=== PATIENT | female | born 1935 | race African-American/Black ===

== ENCOUNTER 2019-04-02 21:11 | Emergency (ER) | payer OTHER ==
[~2019-04-02] VITALS: Ht 160 cm; Wt 69.4 kg
[2019-04-02 21:35] LABS: BASO # 0.2 x10^3/uL (0.0-0.2); BASO % 1 % (0-3); EOS # 0.1 x10^3/uL (0.0-0.7); EOS % 1 % (0-3); HEMATOCRIT 47.2 % (36.0-47.0); HEMOGLOBIN 15.3 g/dL (12.0-15.5); LYMPH % 33 % (24-48); MEAN CORPUSCULAR HEMOGLOBIN 28 pg (25-35); MEAN CORPUSCULAR HGB CONC 32 g/dL (31-37); MEAN CORPUSCULAR VOLUME 88 fL (79-100); MONO # 0.8 x10^3/uL (0.0-1.1); MONO % 6 % (0-9); NEUT % 60 % (31-73); PLATELET COUNT 304 x10^3/uL (140-400); RED BLOOD COUNT 5.38 x10^6/uL (3.50-5.40); RED CELL DISTRIBUTION WIDTH 14.4 % (11.5-14.5); WHITE BLOOD COUNT 15.1 x10^3/uL (4.0-11.0)
[2019-04-02] MEDS: fentaNYL PF VIAL 100 MCG/2 ML VIAL IV PRN (21:38)
[2019-04-02] MEDS ORDERED: IV NORMAL SALINE 1000ML BAG 1,000 ML IV SCH (22:00)
[2019-04-02] MEDS ORDERED: ONDANSETRON PF 4 MG/2 ML VIAL. IV ONE (22:00)
[2019-04-02 22:30] LABS: CALCIUM 9.2 mg/dL (8.5-10.1); CREATININE 0.9 mg/dL (0.6-1.0); GFR 72.7; POTASSIUM 3.2 mmol/L (3.5-5.1)
[2019-04-02 22:36] LABS: ALBUMIN 3.7 g/dL (3.4-5.0); TOTAL BILIRUBIN 0.7 mg/dL (0.2-1.0); TOTAL PROTEIN 7.5 g/dL (6.4-8.2)
[2019-04-02 22:41] LABS: BILIRUBIN,URINE SMALL (NEG); CLARITY,URINE CLOUDY; COLOR,URINE YELLOW; NITRITE,URINE NEGATIVE (NEG); PH,URINE 6.5; PROTEIN,URINE 100 mg/dL (NEG-TRACE)
[2019-04-02 22:45] LABS: SQUAMOUS EPITHELIAL CELL,UR FEW /LPF
[2019-04-02 22:46] LABS: AMORPHOUS SEDIMENT,UR PRESENT /HPF; BACTERIA,URINE 0 /HPF (0-FEW); RBC,URINE RARE /HPF (0-2)
[2019-04-02] MEDS ORDERED: CONTRAST GIVEN. MC PRN (23:45)
[2019-04-02] MEDS ORDERED: IOHEXOL 300 MG/ML 100ML VIAL. IV ONE (23:45)
--- NOTE | 2019-04-02 23:59 | RAD ---
CT ABD PELV W/ IV CONTRST ONLY History: Abdominal pain Comparison: None. Technique: After administration of intravenous contrast, helical CT of the abdomen and pelvis was performed from the lung bases through the ischial tuberosities. Coronal and sagittal reconstructions were obtained. 75 mL of Omnipaque 350 were used. One or more of the following dose reduction techniques were utilized: Automated exposure control (AEC), Adjustment of mA and/or kV according to patient size, Use of iterative reconstruction technique such as ASiR, CT scan done according to ALARA and image gently/image wisely Abdomen Findings: Cardiomegaly. Bibasilar dependent and subsegmental atelectasis. Mildly enlarged mediastinal and hilar lymph nodes. The liver, pancreas, spleen, and bilateral adrenal glands are normal. Cholecystectomy. Symmetric renal enhancement. Subcentimeter right renal hypodensity, too small to characterize but likely a cyst. There is no hydronephrosis. Small hiatal hernia. Multiple prominent fluid-filled but nondilated loops of small bowel. Fluid throughout the proximal colon. Appendix is normal. There is no free fluid. There is no mesenteric or retroperitoneal adenopathy. Mild aortoiliac atherosclerotic disease Pelvis Findings: Urinary bladder is normal. Hysterectomy. No pelvic free fluid. There is no pelvic or inguinal adenopathy. Degenerative changes spine. Grade 1 anterolisthesis at L4-5 and L5-S1. IMPRESSION: 1. Multiple conspicuous fluid-filled but nondilated loops of small bowel, likely nonspecific enteritis. 2. Fluid throughout the proximal colon, which can be seen with diarrhea. 3. Mildly enlarged mediastinal and hilar lymph nodes of indeterminate etiology. Electronically signed by: Steve Golden MD (04/02/2019 11:56 PM) [facility]
[2019-04-03] VITALS: BP 188/103
[2019-04-03] MEDS ORDERED: ONDA4TAB12 PO (00:17)
[2019-04-03] MEDS ORDERED: METR500T PO (00:17)
[2019-04-03] MEDS ORDERED: DIPH1TAB PO (00:17)
--- NOTE | 2019-04-03 00:17 | PHYS DOC ---
Past Medical History Past Medical History: Arthritis, Hypertension, Other Additional Past Medical Histor: osteoporosis Past Surgical History: No Surgical History Alcohol Use: None Drug Use: None Adult General Chief Complaint Chief Complaint: ABDOMINAL PAIN HPI HPI Patient is an 83-year-old female who presents with complaint of abdominal cramping with vomiting and diarrhea that started approximately 3 hours prior to arrival to the emergency room. Patient rates the cramping is moderate. She luis es any chest pain or shortness of breath. She also denies any fever. She states that she has had several episodes of both vomiting and diarrhea since onset. She states that symptoms are worsened if she tries to eat or drink anything. She states that nothing is helping with her symptoms.[] Review of Systems Review of Systems Constitutional: Denies fever or chills [] Respiratory: Denies cough or shortness of breath [] Cardiovascular: No additional information not addressed in HPI [] GI: Complains of abdominal cramping with vomiting and diarrhea [] Integument: Denies rash or skin lesions [] Neurologic: Denies headache, focal weakness or sensory changes [] All other systems were reviewed and found to be within normal limits, except as documented in this note. Current Medications Current Medications Current Medications Medications (Trade) Dose Ordered Sig/Uzair Start Time Stop Time Status Last Admin Dose Admin Fentanyl Citrate (Fentanyl 2ml Vial) 50 mcg PRN Q15MIN PRN 04/02/19 21:30 04/03/19 21:29 04/02/19 21:38 50 MCG Info (CONTRAST GIVEN -- Rx MONITORING) 1 each PRN DAILY PRN 04/02/19 23:45 04/04/19 23:44 Iohexol (Omnipaque 300 Mg/ml) 75 ml 1X ONCE 04/02/19 23:45 04/02/19 23:46 DC 04/02/19 23:40 75 ML Ondansetron HCl (Zofran) 4 mg 1X ONCE 04/02/19 22:00 04/02/19 22:01 DC 04/02/19 21:38 4 MG Sodium Chloride 1,000 ml @ 1,000 mls/hr Q1H 04/02/19 22:00 04/02/19 22:59 DC 04/02/19 21:45 1,000 MLS/HR Allergies Allergies Allergies Coded Allergies Type Severity Reaction Last Updated Verified No Known Drug Allergies 04/02/19 No Physical Exam Physical Exam Constitutional: Well developed, well nourished, no acute distress, non-toxic appearance. [] HENT: Normocephalic, atraumatic, bilateral external ears normal, oropharynx moist, no oral exudates, nose normal. [] Eyes: PERRLA, EOMI, conjunctiva normal, no discharge. [] Neck: Normal range of motion, no tenderness, supple, no stridor. [] Cardiovascular: Regular rate and rhythm[] Lungs & Thorax: Bilateral breath sounds clear to auscultation [] Abdomen: Bowel sounds normal, soft, with mild diffuse tenderness. [] Skin: Warm, dry, no erythema, no rash. [] Extremities: No tenderness, no cyanosis, no clubbing, ROM intact, no edema. [] Neurologic: Alert and oriented X 3, no focal deficits noted. [] Current Patient Data Vital Signs Vital Signs Date Time Temp Pulse Resp B/P (MAP) Pulse Ox O2 Delivery O2 Flow Rate FiO2 04/02/19 21:38 20 Room Air 04/02/19 21:25 98.0 80 194/93 (126) 97 98.0 Lab Values Laboratory Tests Test 04/02/19 21:23 04/02/19 22:06 04/02/19 22:35 White Blood Count 15.1 x10^3/uL (4.0-11.0) H Red Blood Count 5.38 x10^6/uL (3.50-5.40) Hemoglobin 15.3 g/dL (12.0-15.5) Hematocrit 47.2 % (36.0-47.0) H Mean Corpuscular Volume 88 fL (79-100) Mean Corpuscular Hemoglobin 28 pg (25-35) Mean Corpuscular Hemoglobin Concent 32 g/dL (31-37) Red Cell Distribution Width 14.4 % (11.5-14.5) Platelet Count 304 x10^3/uL (140-400) Neutrophils (%) (Auto) 60 % (31-73) Lymphocytes (%) (Auto) 33 % (24-48) Monocytes (%) (Auto) 6 % (0-9) Eosinophils (%) (Auto) 1 % (0-3) Basophils (%) (Auto) 1 % (0-3) Neutrophils # (Auto) 9.0 x10^3/uL (1.8-7.7) H Lymphocytes # (Auto) 5.0 x10^3/uL (1.0-4.8) H Monocytes # (Auto) 0.8 x10^3/uL (0.0-1.1) Eosinophils # (Auto) 0.1 x10^3/uL (0.0-0.7) Basophils # (Auto) 0.2 x10^3/uL (0.0-0.2) Sodium Level 143 mmol/L (136-145) Potassium Level 3.2 mmol/L (3.5-5.1) L Chloride Level 106 mmol/L (98-107) Carbon Dioxide Level 25 mmol/L (21-32) Anion Gap 12 (6-14) Blood Urea Nitrogen 20 mg/dL (7-20) Creatinine 0.9 mg/dL (0.6-1.0) Estimated GFR (Cockcroft-Gault) 72.7 BUN/Creatinine Ratio 22 (6-20) H Glucose Level 171 mg/dL (70-99) H Calcium Level 9.2 mg/dL (8.5-10.1) Total Bilirubin 0.7 mg/dL (0.2-1.0) Aspartate Amino Transferase (AST) 20 U/L (15-37) Alanine Aminotransferase (ALT) 17 U/L (14-59) Alkaline Phosphatase 43 U/L (46-116) L Total Protein 7.5 g/dL (6.4-8.2) Albumin 3.7 g/dL (3.4-5.0) Albumin/Globulin Ratio 1.0 (1.0-1.7) Lipase 93 U/L (73-393) Urine Collection Type Unknown Urine Color Yellow Urine Clarity Cloudy Urine pH 6.5 Urine Specific Outlook 1.025 Urine Protein 100 mg/dL (NEG-TRACE) Urine Glucose (UA) Negative mg/dL (NEG) Urine Ketones (Stick) 40 mg/dL (NEG) Urine Blood Negative (NEG) Urine Nitrite Negative (NEG) Urine Bilirubin Small (NEG) Urine Urobilinogen Dipstick 1.0 mg/dL (0.2 mg/dL) Urine Leukocyte Esterase Small (NEG) Urine RBC Rare /HPF (0-2) Urine WBC 5-10 /HPF (0-4) Urine Squamous Epithelial Cells Few /LPF Urine Calcium Phosphate Crystals /HPF Urine Amorphous Sediment Present /HPF Urine Bacteria 0 /HPF (0-FEW) Urine Mucus Mod /LPF Laboratory Tests 04/02/19 21:23 Laboratory Tests 04/02/19 22:06 EKG EKG [] Radiology/Procedures Radiology/Procedures [] Impressions: PROCEDURE: CT ABD PELV W/ IV CONTRST ONLY CT ABD PELV W/ IV CONTRST ONLY History: Abdominal pain Comparison: None. Technique: After administration of intravenous contrast, helical CT of the abdomen and pelvis was performed from the lung bases through the ischial tuberosities. Coronal and sagittal reconstructions were obtained. 75 mL of Omnipaque 350 were used. One or more of the following dose reduction techniques were utilized: Automated exposure control (AEC), Adjustment of mA and/or kV according to patient size, Use of iterative reconstruction technique such as ASiR, CT scan done according to ALARA and image gently/image wisely Abdomen Findings: Cardiomegaly. Bibasilar dependent and subsegmental atelectasis. Mildly enlarged mediastinal and hilar lymph nodes. The liver, pancreas, spleen, and bilateral adrenal glands are normal. Cholecystectomy. Symmetric renal enhancement. Subcentimeter right renal hypodensity, too small to characterize but likely a cyst. There is no hydronephrosis. Small hiatal hernia. Multiple prominent fluid-filled but nondilated loops of small bowel. Fluid throughout the proximal colon. Appendix is normal. There is no free fluid. There is no mesenteric or retroperitoneal adenopathy. Mild aortoiliac atherosclerotic disease Pelvis Findings: Urinary bladder is normal. Hysterectomy. No pelvic free fluid. There is no pelvic or inguinal adenopathy. Degenerative changes spine. Grade 1 anterolisthesis at L4-5 and L5-S1. IMPRESSION: 1. Multiple conspicuous fluid-filled but nondilated loops of small bowel, likely nonspecific enteritis. 2. Fluid throughout the proximal colon, which can be seen with diarrhea. 3. Mildly enlarged mediastinal and hilar lymph nodes of indeterminate etiology. Electronically signed by: Steve Golden MD (04/02/2019 11:56 PM) [facility] Course & Med Decision Making Course & Med Decision Making Pertinent Labs and Imaging studies reviewed. (See chart for details) [] Dragon Disclaimer Dragon Disclaimer This electronic medical record was generated, in whole or in part, using a voice recognition dictation system. Departure Departure Impression: Primary Impression: Enteritis Disposition: 01 HOME, SELF-CARE Condition: STABLE Referrals: NIURKA CROSS MD (PCP) Patient Instructions: Viral Gastroenteritis Scripts Diphenoxylate Hcl/Atropine (LOMOTIL TABLET) 1 Each Tablet 1 TAB PO TID PRN for DIARRHEA, #15 TAB Prov: NIKKIE ROSAS Jr. DO 04/03/19 Ondansetron (ONDANSETRON ODT) 4 Mg Tab.rapdis 1 TAB PO PRN Q6-8HRS PRN for NAUSEA, #15 TAB Prov: NIKKIE ROSAS Jr. DO 04/03/19 Metronidazole (FLAGYL) 500 Mg Tablet 1 TAB PO TID, #30 TAB Prov: NIKKIE ROSAS Jr. DO 04/03/19 NIKKIE ROSAS Jr. DO Apr 03, 2019 00:17
[2019-04-03] MEDS ORDERED: metroNIDAZOLE 500 MG TABLET PO ONE (00:30)
[2019-04-03] MEDS: fentaNYL PF VIAL 100 MCG/2 ML VIAL IV PRN (00:49)
[2019-04-03] MEDS ORDERED: DIPHENOXYLATE/ATROPINE TABLET. PO ONE (01:00)
--- NOTE | 2019-04-03 06:54 | EKG ---
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
== END 2019-04-03 01:10 | disposition home or self-care (01) ==
LOC: ER 21:11
DX: K52.9 Noninfective gastroenteritis and colitis, unspecified (principal); I10 Essential (primary) hypertension
CPT/HCPCS: 36415; 74177; 80053; 81001; 83690; 85025; 87086; 93005; 96361; 96374; 96375; 96376; 99285; J2405; J3010; J7030; Q9967

== ENCOUNTER 2020-08-21 08:44 | Emergency (ER) | payer MEDICARE, OTHER ==
[~2020-08-21] VITALS: Ht 157.5 cm; Wt 67.3 kg
[~2020-08-21 08:44] MED LIST: DIPH1TAB PO; METR500T PO; ONDA4TAB12 PO
--- NOTE | 2020-08-21 09:11 | PHYS DOC ---
Past Medical History Past Medical History: Arthritis, Hypertension, Other Additional Past Medical Histor: osteoporosis, DM? Past Surgical History: Cholecystectomy Smoking Status: Never Smoker Alcohol Use: None Drug Use: None General Adult EDM: Chief Complaint: HIP PAIN HPI: HPI: Patient is a 84 year old female who presented to ER for evaluation of bilateral hip pain that radiated to her thigh area for about 4 days. Patient has been able to walk without a problem however she is still having pain whenever she moves her extremity. Patient denies any abdominal pain, no nausea vomiting. Patient said about 3 weeks ago she fell after she tripped on her feet. Patient fell forward. Patient denies any head or neck injury. Patient denies any chest pain, no trouble breathing, no cough, no fever. Review of Systems: Review of Systems: Constitutional: Denies fever or chills. [] Eyes: Denies change in visual acuity. [] HENT: Denies nasal congestion or sore throat. [] Respiratory: Denies cough or shortness of breath. [] Cardiovascular: Denies chest pain or edema. [] GI: Denies abdominal pain, nausea, vomiting, bloody stools or diarrhea. [] : Denies dysuria. [] Musculoskeletal: Positive for bilateral hip pain. Integument: Denies rash. [] Neurologic: Denies headache, focal weakness or sensory changes. [] Endocrine: Denies polyuria or polydipsia. [] Lymphatic: Denies swollen glands. [] Psychiatric: Denies depression or anxiety. [] Heart Score: C/O Chest Pain: N/A Risk Factors: Risk Factors: DM, Current or recent (<one month) smoker, HTN, HLP, family h istory of CAD, obesity. Risk Scores: Score 0 - 3: 2.5% MACE over next 6 weeks - Discharge Home Score 4 - 6: 20.3% MACE over next 6 weeks - Admit for Clinical Observation Score 7 - 10: 72.7% MACE over next 6 weeks - Early Invasive Strategies Allergies: Allergies: Allergies Coded Allergies Type Severity Reaction Last Updated Verified No Known Drug Allergies 04/02/19 No Physical Exam: PE: Constitutional: Well developed, well nourished, no acute distress, non-toxic appearance. [] HENT: Normocephalic, atraumatic, bilateral external ears normal, oropharynx moist, no oral exudates, nose normal. [] Eyes: PERRLA, EOMI, conjunctiva normal, no discharge. [] Neck: Normal range of motion, no tenderness, supple, no stridor. [] Cardiovascular:Heart rate regular rhythm, no murmur [] Lungs & Thorax: Bilateral breath sounds clear to auscultation [] Abdomen: Bowel sounds normal, soft, no tenderness, no masses, no pulsatile masses. [] Skin: Warm, dry, no erythema, no rash. [] Back: No tenderness, no CVA tenderness. [] Extremities: No tenderness, no cyanosis, no clubbing, ROM intact, no edema. [] Neurologic: Alert and oriented X 3, normal motor function, normal sensory fun ction, no focal deficits noted. [] Psychologic: Affect normal, judgement normal, mood normal. [] EKG: EKG: [] Radiology/Procedures: Radiology/Procedures: [][facility] [address] [place] [address] IMAGING REPORT Signed PATIENT: ELIGIO CHAVEZ ACCOUNT: [id number] : 1935 LOCATION: ER AGE: 84 SEX: F EXAM STATUS: PRE ER ORD. PHYSICIAN: FARA MEYERS DO REASON: bilat hip pain for 4 days. nki PROCEDURE: HIP BILATERAL WITH PELVIS Pelvis and bilateral hips: Reason for examination: Bilateral hip pain for 4 days. No known injury. Single view of the pelvis shows no evidence of fracture. The bone density is normal. No abnormality seen at the sacrum or sacroiliac joints. Proximal femur appear to be intact. The proximal femur bilaterally appear to be intact and the hip joints are ma intained. IMPRESSION: No acute bony abnormality in the pelvis or proximal femur. Electronically signed by: Aziza Hartley MD (08/21/2020 9:34 AM) [facility] DICTATED and SIGNED BY: AZIZA HARTLEY MD DATE: 08/21/20 [id number] 0 [facility] [address] [place], [place] [id number] IMAGING REPORT Signed PATIENT: ELIGIO CHAVEZ ACCOUNT: [id number] : 1935 LOCATION: ER AGE: 84 SEX: F EXAM STATUS: REG ER ORD. PHYSICIAN: FARA MEYERS DO REASON: legs pain, mostly behind knees and back of thighs PROCEDURE: VENOUS LOWER EXT BILATERAL EXAM: Bilateral lower extremity venous Doppler sonogram. HISTORY: Pain and swelling. TECHNIQUE: Evangelista scale and color Doppler sonographic evaluation of the bilateral lower extremity veins with spectral waveform analysis was performed. FINDINGS: There is normal color flow, normal compressibility and there are normal spectral waveforms in the common femoral, superficial femoral, popliteal, posterior tibial and greater saphenous veins. IMPRESSION: No Doppler evidence of lower extremity deep venous thrombosis. Electronically signed by: Miriam Fox MD (08/21/2020 12:03 PM) [facility] DICTATED and SIGNED BY: MIRIAM FOX MD DATE: 08/21/20 [id number] 0 Course & Med Decision Making: Course & Med Decision Making Pertinent Labs and Imaging studies reviewed. (See chart for details) Patient is an 84-year-old female who presented to ER due to bilateral hip pain, x-ray of her hip did not show any acute problem. Doppler her lower extremity did not show any evidence of DVT. Patient was discharged home in stable condition. Dragon Disclaimer: Dragon Disclaimer: This electronic medical record was generated, in whole or in part, using a voice recognition dictation system. Departure Departure Impression: Primary Impression: Hip pain, bilateral Disposition: 01 HOME / SELF CARE / HOMELESS Condition: STABLE Referrals: NIURKA CROSS MD (PCP) please follow up with your doctor next week Patient Instructions: Arthritis, Degenerative-Brief, Hip Pain Additional Instructions: Thank you for visiting our Emergency Department. We appreciate you trusting us with your care. If any additional problems come up don't hesitate to return to visit us. Please follow up with your primary care provider so they can plan additional care if needed and know about the problem that you had. If symptoms worsen come back to the Emergency Department. Any concerning symptoms that start such as chest pain, shortness of air, weakness or numbness on one side of the body, running high fevers or any other concerning symptoms return to the ER. Scripts Tramadol Hcl (TRAMADOL HCL) 50 Mg Tablet 50 MG PO Q6HRS PRN for PAIN, #20 TAB Prov: FARA MEYERS DO 08/21/20 FARA MEYERS DO August 21, 2020 09:11
--- NOTE | 2020-08-21 09:36 | RAD ---
Pelvis and bilateral hips: Reason for examination: Bilateral hip pain for 4 days. No known injury. Single view of the pelvis shows no evidence of fracture. The bone density is normal. No abnormality s een at the sacrum or sacroiliac joints. Proximal femur appear to be intact. The proximal femur bilaterally appear to be intact and the hip joints are maintained. IMPRESSION: No acute bony abnormality in the pelvis or proximal femur. Electronically signed by: Aziza Garcia MD (08/21/2020 9:34 AM) [facility]
[2020-08-21 11:30] VITALS: BP 180/93
[2020-08-21] MEDS ORDERED: HYDROcodone/APAP 10/325 1 TAB TABLET PO ONE (11:30)
--- NOTE | 2020-08-21 12:05 | RAD ---
EXAM: Bilateral lower extremity venous Doppler sonogram. HISTORY: Pain and swelling. TECHNIQUE: Evangelista scale and color Doppler sonographic evaluation of the bilateral lower extremity veins with spectral waveform analysis was performed. FINDINGS: There is normal color flow, normal compressibility and there are normal spectral waveforms in the common femoral, superficial femoral, popliteal, posterior tibial and greater saphenous veins. IMPRESSION: No Doppler evidence of lower extremity deep venous thrombosis. Electronically signed by: Miriam Shine MD (08/21/2020 12:03 PM) [facility]
[2020-08-21] MEDS ORDERED: TRAM50TA PO (12:18)
== END 2020-08-21 12:21 | disposition home or self-care (01) ==
LOC: ER 08:44
DX: M25.552 Pain in left hip (principal); M25.551 Pain in right hip; I10 Essential (primary) hypertension; Z90.49 Acquired absence of other specified parts of digestive tract
CPT/HCPCS: 73521; 93970; 99285-25

== ENCOUNTER 2020-12-08 03:55 | Observation (INO) | payer MEDICARE ==
[~2020-12-08] VITALS: Ht 157.5 cm; Wt 67.7 kg
[~2020-12-08 03:55] MED LIST changes: +TRAM50TA PO
--- NOTE | 2020-12-08 04:11 | EKG ---
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
[2020-12-08] MEDS ORDERED: ONDANSETRON PF 4 MG/2 ML VIAL. IVP ONE (04:15)
[2020-12-08 04:17] LABS: BASO # 0.1 x10^3/uL (0.0-0.2); BASO % 1 % (0-3); EOS % 0 % (0-3); HEMATOCRIT 38.4 % (36.0-47.0); HEMOGLOBIN 12.9 g/dL (12.0-15.5); LYMPH % 27 % (24-48); MEAN CORPUSCULAR HEMOGLOBIN 29 pg (25-35); MEAN CORPUSCULAR HGB CONC 34 g/dL (31-37); MEAN CORPUSCULAR VOLUME 87 fL (79-100); MONO # 0.6 x10^3/uL (0.0-1.1); MONO % 5 % (0-9); NEUT # 7.5 x10^3/uL (1.8-7.7); NEUT % 67 % (31-73); PLATELET COUNT 277 x10^3/uL (140-400); RED BLOOD COUNT 4.41 x10^6/uL (3.50-5.40); RED CELL DISTRIBUTION WIDTH 14.3 % (11.5-14.5); WHITE BLOOD COUNT 11.2 x10^3/uL (4.0-11.0)
--- NOTE | 2020-12-08 04:23 | EKG ---
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
[2020-12-08 04:28] LABS: CALCIUM 8.7 mg/dL (8.5-10.1); GFR 64.1; POTASSIUM 3.6 mmol/L (3.5-5.1)
--- NOTE | 2020-12-08 04:28 | PHYS DOC ---
Past Medical History Past Medical History: Arthritis, Diabetes-Type II, High Cholesterol, Hype rtension, Other Additional Past Medical Histor: osteoporosis, DM? Past Surgical History: Cholecystectomy Smoking Status: Never Smoker Alcohol Use: None Drug Use: None General Adult EDM: Chief Complaint: CHEST PAIN HPI: HPI: Patient is a 85 year old female with history of HTN, HLD, DM who presents with chest tightness/pressure starting 1 hour prior to arrival. It awoke her from sleep. It is central in nature. Does not radiate. Associated with nausea/vomiting. Denies diaphoresis or shortness of breath. Is not similar to chest pain that she has had in the past. She denies history of HI or cardiac stents. Not a smoker. Had been feeling well prior to this. Denies any recent fever/chills, cough, congestion, sore throat. No Covid contacts. States that she is fully vaccinated for Covid. Review of Systems: Review of Systems: Constitutional: Denies fever or chills. [] Eyes: Denies change in visual acuity. [] HENT: Denies nasal congestion or sore throat. [] Respiratory: Denies cough or shortness of breath. [] Cardiovascular: Reports chest pain. [] GI: + Nausea/vomiting. Denies abdominal pain, bloody stools or diarrhea. [] : Denies dysuria. [] Musculoskeletal: Denies back pain or joint pain. [] Integument: Denies rash. [] Neurologic: Denies headache, focal weakness or sensory changes. [] Endocrine: Denies polyuria or polydipsia. [] Lymphatic: Denies swollen glands. [] Psychiatric: Denies depression or anxiety. [] Heart Score: C/O Chest Pain: Yes HEART Score for Chest Pain: HEART Score for Chest Pain Response (Comments) Value History Highly Suspicious [address] Depression 2 Age > 65 2 Risk Factors >3 Risk Factors or Hx CAD 2 Total 8 Risk Factors: Risk Factors: DM, HTN, HLD Risk Scores: Score 7 - 10: 72.7% MACE over next 6 weeks - Early Invasive Strategies Current Medications: Current Medications Medications (Trade) Dose Ordered Sig/Uzair Start Time Stop Time Status Last Admin Dose Admin Ondansetron HCl (Zofran) 4 mg 1X ONCE 12/08/20 04:15 12/08/20 04:16 DC 12/08/20 04:04 4 MG Allergies: Allergies: Allergies Coded Allergies Type Severity Reaction Last Updated Verified No Known Drug Allergies 04/02/19 No Physical Exam: PE: Constitutional: Sitting up. Holding chest at times. Actively vomiting on arrival. [] HENT: Normocephalic, atraumatic, [] Eyes conjunctiva normal, no discharge. [] Neck: Normal range of motion, no tenderness, supple, no stridor. [] Cardiovascular:Heart rate regular rhythm, no murmur [] Lungs & Thorax: Bilateral breath sounds clear to auscultation [] Abdomen: Soft, nontender, nondistended. [] Skin: Warm, dry, no erythema, no rash. [] Back: No tenderness, no CVA tenderness. [] Extremities: No tenderness, no cyanosis, no clubbing, ROM intact, no edema. [] Neurologic: Alert and oriented X 3, normal motor function, normal sensory function, no focal deficits noted. [] Psychologic: Affect normal, judgement normal, mood normal. [] EKG: EKG: Prehospital EKG: significant ST depressions V4V6 and T wave inversions. There is significant baseline wander V1V3 that limits interpretation. Initial EKG here: J-point elevation in V2 and slightly in V3. T wave inversions in 1, aVL and laterally V4V6. As compared to prehospital EKG V4V6 are less depressed concerning for dynamic EKG changes. No STEMI. (Discussed with Dr. Walker at 0410) Radiology/Procedures: Radiology/Procedures: [] Course & Med Decision Making: Course & Med Decision Making Pertinent Labs and Imaging studies reviewed. (See chart for details) Patient 85-year-old female with history of HTN, HLD, DM presents with chest tightness/pressure starting 1 hour prior to arrival. Prehospital EKG was significant lateral ST depressions. EKG here with resolution of those lateral ST depressions, shows continued J-point elevation in V2. Discussed with cardiology, Dr. Walker, who reviewed the EKGs and confirmed no STEMI. We discussed empiric treatment with heparin, but he would prefer to hold off and trend enzymes. HEART Score is 8 prior to first troponin. Will clearly require admission and serial troponins. As far as other etiologies for chest pain, she does not have any abdominal ttp to suggest subdiaphragmatic process. No hypoxia or pleurisy to suggest PE. Not characteristic of aortic dissection. Will check CXR to r/o ptx and evaluate for pna. 0427 First troponin negative. Chest x-ray with findings consistent with known sarcoidosis. Admission orders placed. Will discuss with Dr. Palomares. [id number] Mark Disclaimer: Mark Disclaimer: This electronic medical record was generated, in whole or in part, using a voice recognition dictation system. Departure Departure Impression: Primary Impression: Chest pain Disposition: ADMITTED INPATIENT Admitting Physician: RAMA (Jelani) Condition: STABLE Referrals: NO PCP (PCP) RENU MARTIN MD Dec 08, 2020 04:27
[2020-12-08 04:33] LABS: ALBUMIN 3.1 g/dL (3.4-5.0); TOTAL BILIRUBIN 0.2 mg/dL (0.2-1.0); TOTAL PROTEIN 6.1 g/dL (6.4-8.2)
[2020-12-08 04:40] LABS: BILIRUBIN,URINE NEGATIVE (NEG); CLARITY,URINE CLEAR; COLOR,URINE YELLOW; NITRITE,URINE NEGATIVE (NEG); PROTEIN,URINE NEGATIVE (NEG-TRACE)
[2020-12-08] MEDS ORDERED: CARVEDILOL 3.125 MG TABLET. PO SCH (04:45)
[2020-12-08 04:53] LABS: BACTERIA,URINE 0 /HPF (0-FEW); RBC,URINE 0 /HPF (0-2)
--- NOTE | 2020-12-08 04:57 | RAD ---
XR CHEST 1V Clinical Indication: Reason: chest pain / Comparison: None. Findings: Atherosclerotic thoracic aorta. Cardiac size is normal. There is opacity in the medial right lung ape x measuring approximately 2.7 cm. Tiny calcified granulomas in the bilateral lung bases. There is no pneumothorax. No pleural effusion is appreciated. No acute bone abnormality. IMPRESSION: There is opacity in the medial right lung apex. Pulmonary nodule cannot be excluded. Consider further evaluation with apical lordotic view or CT chest. Electronically signed by: Stanislaw Navarrete MD (12/08/2020 4:55 AM) [facility]
[2020-12-08] MEDS ORDERED: ACETAMINOPHEN 500 MG TABLET PO ONE (10:45)
[2020-12-08] MEDS ORDERED: ONDANSETRON PF 4 MG/2 ML VIAL. IVP PRN (11:45)
[2020-12-08] MEDS ORDERED: ACETAMINOPHEN 325 MG TABLET. PO PRN (11:45)
[2020-12-08] MEDS ORDERED: ELECTROLYTE (NON-ICU) PROTOCOL. MC PRN (11:45)
[2020-12-08] MEDS ORDERED: CALCIUM CARBONATE 500 MG TAB.CHEW PO PRN (11:45)
[2020-12-08] MEDS ORDERED: oxyCODONE/APAP 5/325 1 TAB TABLET PO PRN ×2 (11:45)
[2020-12-08] MEDS ORDERED: ZOLPIDEM 5 MG TABLET. PO PRN (11:45)
[2020-12-08 12:24] LABS: CHOLESTEROL/HDL RATIO 3.2
--- NOTE | 2020-12-08 13:15 | PDOC2 ---
AARON ARREDONDO SOLIDWORKS DESIGNER 12/08/20 1315: CARDIAC CONSULT DATE OF CONSULT Date of Consult DATE: 12/08/20 TIME: 11:57 REASON FOR CONSULT Reason for Consult: Chest pain REFERRING PHYSICIAN Referring Physician: Dr. Maza SOURCE Source: Chart review, Patient HISTORY OF PRESENT ILLNESS HISTORY OF PRESENT ILLNESS This is an 85 yo female who presented secondary to chest pain. Patient reports she woke up out of sleep with pressure across her central chest. Associated with nausea. No shortness of breath, dizziness, or diaphoresis. Pain was worse with any type of movement. Pain persisted so EMS was called. Pain seemed to improved upon arrival following Zofran. Did have emesis x2 in ED. No prior h/o CAD. Is feeling well now. Routine hospital is [facility], but came to [facility] as this is closest ED. Recently diagnosed with sarcoidosis and has been initiated on steroids. PAST MEDICAL HISTORY Past Medical History sarcoidosis Cardiovascular: HTN, Hyperlipidemia Endocrine: Hypothyroidism PAST SURGICAL HISTORY Past Surgical History: No pertinent history FAMILY HISTORY Family History: Hypertension SOCIAL HISTORY Smoke: No ALCOHOL: none Drugs: None Lives: with Family CURRENT MEDICATIONS CURRENT MEDICATIONS Current Medications Medications (Trade) Dose Ordered Sig/Uzair Route PRN Reason Start Time Stop Time Status Last Admin Dose Admin Ondansetron HCl (Zofran) 4 mg 1X ONCE IVP 12/08/20 04:15 12/08/20 04:16 DC 12/08/20 04:04 Acetaminophen (Tylenol) 1,000 mg 1X ONCE PO 12/08/20 10:45 12/08/20 10:46 DC 12/08/20 11:33 ALLERGIES ALLERGIES: Coded Allergies: No Known Drug Allergies (Unverified , 04/02/19) ROS Review of System 14 point ROS conducted with pertinent positives noted above in HPi PHYSICAL EXAM General: Alert, Oriented X3, Cooperative, No acute distress HEENT: Atraumatic Lungs: Clear to auscultation Heart: Regular rate Abdomen: No tenderness Extremities: No edema, Normal pulses Skin: No significant lesion Neuro: Normal speech, Sensation intact Psych/Mental Status: Mental status NL, Mood NL MUSCULOSKELETAL: Osteoarthritic changes both hands VITALS/I&O VITALS/I&O: Vital Signs Date Time Temp Pulse Resp B/P (MAP) Pulse Ox O2 Delivery O2 Flow Rate FiO2 12/08/20 09:24 12 84 Room Air 12/08/20 09:24 2.0 8/25/21 08:37 68 116/57 (76) 12/08/20 04:00 98.7 98.7 LABS Lab: Laboratory Tests Test 12/08/20 04:08 12/08/20 04:20 12/08/20 05:54 12/08/20 07:42 White Blood Count 11.2 x10^3/uL (4.0-11.0) H Red Blood Count 4.41 x10^6/uL (3.50-5.40) Hemoglobin 12.9 g/dL (12.0-15.5) Hematocrit 38.4 % (36.0-47.0) Mean Corpuscular Volume 87 fL (79-100) Mean Corpuscular Hemoglobin 29 pg (25-35) Mean Corpuscular Hemoglobin Concent 34 g/dL (31-37) Red Cell Distribution Width 14.3 % (11.5-14.5) Platelet Count 277 x10^3/uL (140-400) Neutrophils (%) (Auto) 67 % (31-73) Lymphocytes (%) (Auto) 27 % (24-48) Monocytes (%) (Auto) 5 % (0-9) Eosinophils (%) (Auto) 0 % (0-3) Basophils (%) (Auto) 1 % (0-3) Neutrophils # (Auto) 7.5 x10^3/uL (1.8-7.7) Lymphocytes # (Auto) 3.0 x10^3/uL (1.0-4.8) Monocytes # (Auto) 0.6 x10^3/uL (0.0-1.1) Eosinophils # (Auto) 0.0 x10^3/uL (0.0-0.7) Basophils # (Auto) 0.1 x10^3/uL (0.0-0.2) Activated Partial Thromboplast Time 24 SEC (24-38) Sodium Level 138 mmol/L (136-145) Potassium Level 3.6 mmol/L (3.5-5.1) Chloride Level 103 mmol/L (98-107) Carbon Dioxide Level 26 mmol/L (21-32) Anion Gap 9 (6-14) Blood Urea Nitrogen 17 mg/dL (7-20) Creatinine 1.0 mg/dL (0.6-1.0) Estimated GFR (Cockcroft-Gault) 64.1 BUN/Creatinine Ratio 17 (6-20) Glucose Level 180 mg/dL (70-99) H Calcium Level 8.7 mg/dL (8.5-10.1) Total Bilirubin 0.2 mg/dL (0.2-1.0) Aspartate Amino Transferase (AST) 22 U/L (15-37) Alanine Aminotransferase (ALT) 19 U/L (14-59) Alkaline Phosphatase 39 U/L (46-116) L Troponin I Quantitative < 0.017 ng/mL (0.000-0.055) < 0.017 ng/mL (0.000-0.055) Total Protein 6.1 g/dL (6.4-8.2) L Albumin 3.1 g/dL (3.4-5.0) L Albumin/Globulin Ratio 1.0 (1.0-1.7) Urine Collection Type Unknown Urine Color Yellow Urine Clarity Clear Urine pH 6.0 (<5.0-8.0) Urine Specific [place] 1.015 (1.000-1.030) Urine Protein Negative mg/dL (NEG-TRACE) Urine Glucose (UA) Negative mg/dL (NEG) Urine Ketones (Stick) Negative mg/dL (NEG) Urine Blood Negative (NEG) Urine Nitrite Negative (NEG) Urine Bilirubin Negative (NEG) Urine Urobilinogen Dipstick 1.0 mg/dL (0.2 mg/dL) Urine Leukocyte Esterase Small (NEG) Urine RBC 0 /HPF (0-2) Urine WBC 5-10 /HPF (0-4) Urine Squamous Epithelial Cells Occ /LPF Urine Bacteria 0 /HPF (0-FEW) Urine Mucus Slight /LPF SARS-CoV-2 RNA (TORREY) Negative (Negative) Test 12/08/20 09:50 Troponin I Quantitative < 0.017 ng/mL (0.000-0.055) Laboratory Tests 12/08/20 04:08 Laboratory Tests 12/08/20 04:08 ASSESSMENT/PLAN ASSESSMENT/PLAN 1. Chest pain, atypical; troponin series normal- AMI ruled out. 2. Hypertension; controlled 3. Hyperlipidemia; statin 4. Hypothyroidism; on replacement 5. Sarcoidosis; relatively new diagnosis. Followed at [facility] Recommendations ASA Lipids Echo to assess LV systolic function Outpatient ischemic evaluation. Patient would like this to be conducted through [facility] Follow up with PCP scheduled for tomorrow. YAA ALAS MD 12/08/20 1710: CARDIAC CONSULT ASSESSMENT/PLAN ASSESSMENT/PLAN Patient seen and examined. Agree with MACHINE PACKAGING TECHNICIAN's assessment and plan. Chest pain with atypical features and most probably musculoskeletal. Myocardial infarction has been ruled out. Check 2D echo to assess LV systolic function and rule out wall motion abnormalities. Consider ischemic evaluation as outpatient. Thank you for your consultation AARON ARREDONDO APRN Dec 08, 2020 13:15 YAA ALAS MD Dec 08, 2020 17:10
--- NOTE | 2020-12-08 14:38 | PDOC1 ---
History and Physical Date of Service: DOS: DATE: 12/08/20 TIME: 14:33 Chief Complaint: Problems: (1) Chest pain Chief Complain: Chest pain History of Present Illness: HPI: Patient is an 85-year-old female presents to this morning due to chest pain and tightness that awoke her from sleep. Reports the pain is in her central chest without radiation. She has had some nausea with this as well. 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 Patient reports she was in her usual state of health prior to this episode. She is fully Covid vaccinated. Denies any Covid contacts. Denies any other symptoms like shortness of breath or dyspnea on exertion. Denies cardiac history In the emergency room troponins were negative x3. Patient's chest pain resolved. Cardiology consulted. Past Medical/Surgical History: PMH/PSH: Arthritis, Diabetes-Type II, High Cholesterol, Hypertension Allergies: Allergies: Coded Allergies: No Known Drug Allergies (Unverified , 04/02/19) Family History: Family History: Hypertension Social History: Social History: Denies alcohol tobacco drug use Current Medications: Current Medications Current Medications Ondansetron HCl (Zofran) 4 mg 1X ONCE IVP Last administered on 12/08/20at 04:04; Start 12/08/20 at 04:15; Stop 12/08/20 at 04:16; Status DC Carvedilol (Coreg) 3.125 mg 1X PO ; Start 12/08/20 at 04:45; Status UNV Acetaminophen (Tylenol) 1,000 mg 1X ONCE PO Last administered on 12/08/20at 11:33; Start 12/08/20 at 10:45; Stop 12/08/20 at 10:46; Status DC Ondansetron HCl (Zofran) 4 mg PRN Q6HRS PRN IVP NAUSEA/VOMITING; Start 12/08/20 at 11:45 Calcium Carbonate/ Glycine (Tums) 500 mg PRN Q3HRS PRN PO UPSET STOMACH; Start 12/08/20 at 11:45 Zolpidem Tartrate (Ambien) 5 mg PRN QHS PRN PO INSOMNIA, MAY REPEAT IN 1HR; Start 12/08/20 at 11:45 Info (Non-Icu Electrolyte Protocol) 1 ea PRN DAILY PRN MC SEE COMMENTS; Start 12/08/20 at 11:45 Oxycodone/ Acetaminophen (Percocet 5/325) 1 tab PRN Q4HRS PRN PO MILD PAIN, 1ST CHOICE; Start 12/08/20 at 11:45 Oxycodone/ Acetaminophen (Percocet 5/325) 2 tab PRN Q4HRS PRN PO MODERATE PAIN, SEVERE PAIN; Start 12/08/20 at 11:45 Acetaminophen (Tylenol) 650 mg PRN Q6HRS PRN PO Headaches, Temp > 101.5F; Start 12/08/20 at 11:45 Senna/Docusate Sodium (Senna Plus) 1 tab BID PO ; Start 12/08/20 at 21:00 Active Scripts Active Tramadol Hcl 50 Mg Tablet 50 Mg PO Q6HRS PRN Lomotil Tablet (Diphenoxylate Hcl/Atropine) 1 Each Tablet 1 Tab PO TID PRN Ondansetron Odt (Ondansetron) 4 Mg Tab.rapdis 1 Tab PO PRN Q6-8HRS PRN Flagyl (Metronidazole) 500 Mg Tablet 1 Tab PO TID ROS: Review of Systems Review of System Negative unless noted in HPI Physical Exam: Vital Signs: Vital Signs Date Time Temp Pulse Resp B/P (MAP) Pulse Ox O2 Delivery O2 Flow Rate FiO2 12/08/20 11:37 62 19 103/59 (74) 99 Room Air 12/08/20 09:24 2.0 12/08/20 04:00 98.7 98.7 Physcial Exam: GEN: No apparent distress. Alert and oriented HEENT: Normal cephalic, atraumatic, external auditory canals are patent EYES: Extraocular muscles are intact, pupil are equally round and reactive to light and accommodation MUSCULOSKELETAL: Well developed , well nourished, good range of motion ENDOCRINE: No thyromegaly was palpated LYMPHATICS: No cervical chain or axillary nodes were noted HEMATOPOIETIC: No bruising NECK: Supple, no JVD, no thyromegaly was noted LUNGS: Clear to auscultation in all lung hernandez without rhonchi or wheezing HEART: RRR, S1, S2 present. Peripheral pulses intact, no obvious murmurs noted ABDOMEN: Soft, nontender. Positive bowel sounds, no organomegaly, normal bowel sounds EXTREMITIES: Without clubbing, cyanosis, or edema. Pedal pulses intact. Negative Homans sign NEUROLOGIC: Normal speech and tone. A&O x 3, moves all extremities, no obvious focal deficits PSYCHIATRIC: Normal affect, normal mood. Stable SKIN: No ulcerations or rashes, good skin turgor, no jaundice VASCULAR: Good capillary refill, neurovascular bundle appears to be intact Labs: Labs: Laboratory Tests Test 12/08/20 04:08 12/08/20 04:20 12/08/20 05:54 12/08/20 07:42 White Blood Count 11.2 x10^3/uL (4.0-11.0) Red Blood Count 4.41 x10^6/uL (3.50-5.40) Hemoglobin 12.9 g/dL (12.0-15.5) Hematocrit 38.4 % (36.0-47.0) Mean Corpuscular Volume 87 fL (79-100) Mean Corpuscular Hemoglobin 29 pg (25-35) Mean Corpuscular Hemoglobin Concent 34 g/dL (31-37) Red Cell Distribution Width 14.3 % (11.5-14.5) Platelet Count 277 x10^3/uL (140-400) Neutrophils (%) (Auto) 67 % (31-73) Lymphocytes (%) (Auto) 27 % (24-48) Monocytes (%) (Auto) 5 % (0-9) Eosinophils (%) (Auto) 0 % (0-3) Basophils (%) (Auto) 1 % (0-3) Neutrophils # (Auto) 7.5 x10^3/uL (1.8-7.7) Lymphocytes # (Auto) 3.0 x10^3/uL (1.0-4.8) Monocytes # (Auto) 0.6 x10^3/uL (0.0-1.1) Eosinophils # (Auto) 0.0 x10^3/uL (0.0-0.7) Basophils # (Auto) 0.1 x10^3/uL (0.0-0.2) Activated Partial Thromboplast Time 24 SEC (24-38) Sodium Level 138 mmol/L (136-145) Potassium Level 3.6 mmol/L (3.5-5.1) Chloride Level 103 mmol/L (98-107) Carbon Dioxide Level 26 mmol/L (21-32) Anion Gap 9 (6-14) Blood Urea Nitrogen 17 mg/dL (7-20) Creatinine 1.0 mg/dL (0.6-1.0) Estimated GFR (Cockcroft-Gault) 64.1 BUN/Creatinine Ratio 17 (6-20) Glucose Level 180 mg/dL (70-99) Calcium Level 8.7 mg/dL (8.5-10.1) Total Bilirubin 0.2 mg/dL (0.2-1.0) Aspartate Amino Transf (AST/SGOT) 22 U/L (15-37) Alanine Aminotransferase (ALT/SGPT) 19 U/L (14-59) Alkaline Phosphatase 39 U/L (46-116) Troponin I Quantitative < 0.017 ng/mL (0.000-0.055) < 0.017 ng/mL (0.000-0.055) Total Protein 6.1 g/dL (6.4-8.2) Albumin 3.1 g/dL (3.4-5.0) Albumin/Globulin Ratio 1.0 (1.0-1.7) Triglycerides Level 67 mg/dL (0-150) Cholesterol Level 156 mg/dL (0-200) LDL Cholesterol, Calculated 94 mg/dL (0-100) VLDL Cholesterol, Calculated 13 mg/dL (0-40) Non-HDL Cholesterol Calculated 107 mg/dL (0-129) HDL Cholesterol 49 mg/dL (40-60) Cholesterol/HDL Ratio 3.2 Urine Collection Type Unknown Urine Color Yellow Urine Clarity Clear Urine pH 6.0 (<5.0-8.0) Urine Specific [place] 1.015 (1.000-1.030) Urine Protein Negative mg/dL (NEG-TRACE) Urine Glucose (UA) Negative mg/dL (NEG) Urine Ketones (Stick) Negative mg/dL (NEG) Urine Blood Negative (NEG) Urine Nitrite Negative (NEG) Urine Bilirubin Negative (NEG) Urine Urobilinogen Dipstick 1.0 mg/dL (0.2 mg/dL) Urine Leukocyte Esterase Small (NEG) Urine RBC 0 /HPF (0-2) Urine WBC 5-10 /HPF (0-4) Urine Squamous Epithelial Cells Occ /LPF Urine Bacteria 0 /HPF (0-FEW) Urine Mucus Slight /LPF SARS-CoV-2 RNA (TORREY) Negative (Negative) Test 12/08/20 09:50 Troponin I Quantitative < 0.017 ng/mL (0.000-0.055) Laboratory Tests Test 12/08/20 04:08 12/08/20 04:20 12/08/20 05:54 12/08/20 07:42 White Blood Count 11.2 x10^3/uL (4.0-11.0) Red Blood Count 4.41 x10^6/uL (3.50-5.40) Hemoglobin 12.9 g/dL (12.0-15.5) Hematocrit 38.4 % (36.0-47.0) Mean Corpuscular Volume 87 fL (79-100) Mean Corpuscular Hemoglobin 29 pg (25-35) Mean Corpuscular Hemoglobin Concent 34 g/dL (31-37) Red Cell Distribution Width 14.3 % (11.5-14.5) Platelet Count 277 x10^3/uL (140-400) Neutrophils (%) (Auto) 67 % (31-73) Lymphocytes (%) (Auto) 27 % (24-48) Monocytes (%) (Auto) 5 % (0-9) Eosinophils (%) (Auto) 0 % (0-3) Basophils (%) (Auto) 1 % (0-3) Neutrophils # (Auto) 7.5 x10^3/uL (1.8-7.7) Lymphocytes # (Auto) 3.0 x10^3/uL (1.0-4.8) Monocytes # (Auto) 0.6 x10^3/uL (0.0-1.1) Eosinophils # (Auto) 0.0 x10^3/uL (0.0-0.7) Basophils # (Auto) 0.1 x10^3/uL (0.0-0.2) Activated Partial Thromboplast Time 24 SEC (24-38) Sodium Level 138 mmol/L (136-145) Potassium Level 3.6 mmol/L (3.5-5.1) Chloride Level 103 mmol/L (98-107) Carbon Dioxide Level 26 mmol/L (21-32) Anion Gap 9 (6-14) Blood Urea Nitrogen 17 mg/dL (7-20) Creatinine 1.0 mg/dL (0.6-1.0) Estimated GFR (Cockcroft-Gault) 64.1 BUN/Creatinine Ratio 17 (6-20) Glucose Level 180 mg/dL (70-99) Calcium Level 8.7 mg/dL (8.5-10.1) Total Bilirubin 0.2 mg/dL (0.2-1.0) Aspartate Amino Transf (AST/SGOT) 22 U/L (15-37) Alanine Aminotransferase (ALT/SGPT) 19 U/L (14-59) Alkaline Phosphatase 39 U/L (46-116) Troponin I Quantitative < 0.017 ng/mL (0.000-0.055) < 0.017 ng/mL (0.000-0.055) Total Protein 6.1 g/dL (6.4-8.2) Albumin 3.1 g/dL (3.4-5.0) Albumin/Globulin Ratio 1.0 (1.0-1.7) Triglycerides Level 67 mg/dL (0-150) Cholesterol Level 156 mg/dL (0-200) LDL Cholesterol, Calculated 94 mg/dL (0-100) VLDL Cholesterol, Calculated 13 mg/dL (0-40) Non-HDL Cholesterol Calculated 107 mg/dL (0-129) HDL Cholesterol 49 mg/dL (40-60) Cholesterol/HDL Ratio 3.2 Urine Collection Type Unknown Urine Color Yellow Urine Clarity Clear Urine pH 6.0 (<5.0-8.0) Urine Specific [place] 1.015 (1.000-1.030) Urine Protein Negative mg/dL (NEG-TRACE) Urine Glucose (UA) Negative mg/dL (NEG) Urine Ketones (Stick) Negative mg/dL (NEG) Urine Blood Negative (NEG) Urine Nitrite Negative (NEG) Urine Bilirubin Negative (NEG) Urine Urobilinogen Dipstick 1.0 mg/dL (0.2 mg/dL) Urine Leukocyte Esterase Small (NEG) Urine RBC 0 /HPF (0-2) Urine WBC 5-10 /HPF (0-4) Urine Squamous Epithelial Cells Occ /LPF Urine Bacteria 0 /HPF (0-FEW) Urine Mucus Slight /LPF SARS-CoV-2 RNA (TORREY) Negative (Negative) Test 12/08/20 09:50 Troponin I Quantitative < 0.017 ng/mL (0.000-0.055) Assessment/Plan Assessment/Plan Patient is an 85-year-old female presents with chest pain. Chest pain without troponin elevation or EKG changes -History of chest pain with no preceding events -The emergency room troponins negative x3, lab work otherwise unremarkable -Cardiology consulted performing bedside echo -Chest pain has resolved -Continue home medications -Likely discharge today. Justifications for Admission Other Justification MARQUISE TOUSSAINT MD Dec 08, 2020 14:38
[2020-12-08] MEDS ORDERED: ASPIRIN ENTERIC COATED 81 MG TABLET.DR. PO SCH (15:30)
[2020-12-08 16:42] VITALS: BP 113/60
[2020-12-08] MEDS ORDERED: ASPI-886 PO (17:56)
--- NOTE | 2020-12-08 18:01 | PDOC3 ---
Discharge Summary Visit Information Date of Admission: Dec 08, 2020 Date of Discharge: Dec 08, 2020 Admitting Diagnosis: Chest Pain Final Diagnosis Problems Medical Problems: (1) Chest pain Status: Acute Brief Hospital Course Allergies Allergies Coded Allergies Type Severity Reaction Last Updated Verified No Known Drug Allergies 04/02/19 No Vital Signs Vital Signs Date Time Temp Pulse Resp B/P (MAP) Pulse Ox O2 Delivery O2 Flow Rate FiO2 12/08/20 11:37 62 19 103/59 (74) 99 Room Air 12/08/20 09:24 2.0 12/08/20 04:00 98.7 98.7 Lab Results Laboratory Tests Test 12/08/20 04:08 12/08/20 04:20 12/08/20 05:54 12/08/20 07:42 White Blood Count 11.2 x10^3/uL (4.0-11.0) Red Blood Count 4.41 x10^6/uL (3.50-5.40) Hemoglobin 12.9 g/dL (12.0-15.5) Hematocrit 38.4 % (36.0-47.0) Mean Corpuscular Volume 87 fL (79-100) Mean Corpuscular Hemoglobin 29 pg (25-35) Mean Corpuscular Hemoglobin Concent 34 g/dL (31-37) Red Cell Distribution Width 14.3 % (11.5-14.5) Platelet Count 277 x10^3/uL (140-400) Neutrophils (%) (Auto) 67 % (31-73) Lymphocytes (%) (Auto) 27 % (24-48) Monocytes (%) (Auto) 5 % (0-9) Eosinophils (%) (Auto) 0 % (0-3) Basophils (%) (Auto) 1 % (0-3) Neutrophils # (Auto) 7.5 x10^3/uL (1.8-7.7) Lymphocytes # (Auto) 3.0 x10^3/uL (1.0-4.8) Monocytes # (Auto) 0.6 x10^3/uL (0.0-1.1) Eosinophils # (Auto) 0.0 x10^3/uL (0.0-0.7) Basophils # (Auto) 0.1 x10^3/uL (0.0-0.2) Activated Partial Thromboplast Time 24 SEC (24-38) Sodium Level 138 mmol/L (136-145) Potassium Level 3.6 mmol/L (3.5-5.1) Chloride Level 103 mmol/L (98-107) Carbon Dioxide Level 26 mmol/L (21-32) Anion Gap 9 (6-14) Blood Urea Nitrogen 17 mg/dL (7-20) Creatinine 1.0 mg/dL (0.6-1.0) Estimated GFR (Cockcroft-Gault) 64.1 BUN/Creatinine Ratio 17 (6-20) Glucose Level 180 mg/dL (70-99) Calcium Level 8.7 mg/dL (8.5-10.1) Total Bilirubin 0.2 mg/dL (0.2-1.0) Aspartate Amino Transf (AST/SGOT) 22 U/L (15-37) Alanine Aminotransferase (ALT/SGPT) 19 U/L (14-59) Alkaline Phosphatase 39 U/L (46-116) Troponin I Quantitative < 0.017 ng/mL (0.000-0.055) < 0.017 ng/mL (0.000-0.055) Total Protein 6.1 g/dL (6.4-8.2) Albumin 3.1 g/dL (3.4-5.0) Albumin/Globulin Ratio 1.0 (1.0-1.7) Triglycerides Level 67 mg/dL (0-150) Cholesterol Level 156 mg/dL (0-200) LDL Cholesterol, Calculated 94 mg/dL (0-100) VLDL Cholesterol, Calculated 13 mg/dL (0-40) Non-HDL Cholesterol Calculated 107 mg/dL (0-129) HDL Cholesterol 49 mg/dL (40-60) Cholesterol/HDL Ratio 3.2 Urine Collection Type Unknown Urine Color Yellow Urine Clarity Clear Urine pH 6.0 (<5.0-8.0) Urine Specific [place] 1.015 (1.000-1.030) Urine Protein Negative mg/dL (NEG-TRACE) Urine Glucose (UA) Negative mg/dL (NEG) Urine Ketones (Stick) Negative mg/dL (NEG) Urine Blood Negative (NEG) Urine Nitrite Negative (NEG) Urine Bilirubin Negative (NEG) Urine Urobilinogen Dipstick 1.0 mg/dL (0.2 mg/dL) Urine Leukocyte Esterase Small (NEG) Urine RBC 0 /HPF (0-2) Urine WBC 5-10 /HPF (0-4) Urine Squamous Epithelial Cells Occ /LPF Urine Bacteria 0 /HPF (0-FEW) Urine Mucus Slight /LPF SARS-CoV-2 RNA (TORREY) Negative (Negative) Test 12/08/20 09:50 Troponin I Quantitative < 0.017 ng/mL (0.000-0.055) Laboratory Tests Test 12/08/20 04:08 12/08/20 04:20 12/08/20 05:54 12/08/20 07:42 White Blood Count 11.2 x10^3/uL (4.0-11.0) Red Blood Count 4.41 x10^6/uL (3.50-5.40) Hemoglobin 12.9 g/dL (12.0-15.5) Hematocrit 38.4 % (36.0-47.0) Mean Corpuscular Volume 87 fL (79-100) Mean Corpuscular Hemoglobin 29 pg (25-35) Mean Corpuscular Hemoglobin Concent 34 g/dL (31-37) Red Cell Distribution Width 14.3 % (11.5-14.5) Platelet Count 277 x10^3/uL (140-400) Neutrophils (%) (Auto) 67 % (31-73) Lymphocytes (%) (Auto) 27 % (24-48) Monocytes (%) (Auto) 5 % (0-9) Eosinophils (%) (Auto) 0 % (0-3) Basophils (%) (Auto) 1 % (0-3) Neutrophils # (Auto) 7.5 x10^3/uL (1.8-7.7) Lymphocytes # (Auto) 3.0 x10^3/uL (1.0-4.8) Monocytes # (Auto) 0.6 x10^3/uL (0.0-1.1) Eosinophils # (Auto) 0.0 x10^3/uL (0.0-0.7) Basophils # (Auto) 0.1 x10^3/uL (0.0-0.2) Activated Partial Thromboplast Time 24 SEC (24-38) Sodium Level 138 mmol/L (136-145) Potassium Level 3.6 mmol/L (3.5-5.1) Chloride Level 103 mmol/L (98-107) Carbon Dioxide Level 26 mmol/L (21-32) Anion Gap 9 (6-14) Blood Urea Nitrogen 17 mg/dL (7-20) Creatinine 1.0 mg/dL (0.6-1.0) Estimated GFR (Cockcroft-Gault) 64.1 BUN/Creatinine Ratio 17 (6-20) Glucose Level 180 mg/dL (70-99) Calcium Level 8.7 mg/dL (8.5-10.1) Total Bilirubin 0.2 mg/dL (0.2-1.0) Aspartate Amino Transf (AST/SGOT) 22 U/L (15-37) Alanine Aminotransferase (ALT/SGPT) 19 U/L (14-59) Alkaline Phosphatase 39 U/L (46-116) Troponin I Quantitative < 0.017 ng/mL (0.000-0.055) < 0.017 ng/mL (0.000-0.055) Total Protein 6.1 g/dL (6.4-8.2) Albumin 3.1 g/dL (3.4-5.0) Albumin/Globulin Ratio 1.0 (1.0-1.7) Triglycerides Level 67 mg/dL (0-150) Cholesterol Level 156 mg/dL (0-200) LDL Cholesterol, Calculated 94 mg/dL (0-100) VLDL Cholesterol, Calculated 13 mg/dL (0-40) Non-HDL Cholesterol Calculated 107 mg/dL (0-129) HDL Cholesterol 49 mg/dL (40-60) Cholesterol/HDL Ratio 3.2 Urine Collection Type Unknown Urine Color Yellow Urine Clarity Clear Urine pH 6.0 (<5.0-8.0) Urine Specific [place] 1.015 (1.000-1.030) Urine Protein Negative mg/dL (NEG-TRACE) Urine Glucose (UA) Negative mg/dL (NEG) Urine Ketones (Stick) Negative mg/dL (NEG) Urine Blood Negative (NEG) Urine Nitrite Negative (NEG) Urine Bilirubin Negative (NEG) Urine Urobilinogen Dipstick 1.0 mg/dL (0.2 mg/dL) Urine Leukocyte Esterase Small (NEG) Urine RBC 0 /HPF (0-2) Urine WBC 5-10 /HPF (0-4) Urine Squamous Epithelial Cells Occ /LPF Urine Bacteria 0 /HPF (0-FEW) Urine Mucus Slight /LPF SARS-CoV-2 RNA (TORREY) Negative (Negative) Test 12/08/20 09:50 Troponin I Quantitative < 0.017 ng/mL (0.000-0.055) Brief Hospital Course Patient is an 85-year-old female presents to this morning due to chest pain and tightness that awoke her from sleep. Reports the pain is in her central chest without radiation. She has had some nausea with this as well. 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 Patient reports she was in her usual state of health prior to this episode. She is fully Covid vaccinated. Denies any Covid contacts. Denies any other symptoms like shortness of breath or dyspnea on exertion. Denies cardiac history In the emergency room troponins were negative x3. Patient's chest pain resolved. Cardiology consulted. Patient was evaluated by cardiology, echo performd. chest pain workup overall negative. Clinically improved thus d/c home Discharge Information Condition at Discharge: Improved Disposition/Orders: D/C to Home Scheduled Aspirin (Aspirin Ec) 81 Mg Tablet.dr, 81 MG PO [id number] for cad for 90 Days, # 90 Prescribed by: MARQUISE TOUSSAINT MD on 12/08/20 1756 Metronidazole (Flagyl) 500 Mg Tablet, 1 TAB PO TID, #30 Prescribed by: NIKKIE ROSAS D.O. on 04/03/19 001 Scheduled PRN Diphenoxylate Hcl/Atropine (Lomotil Tablet) 1 Each Tablet, 1 TAB PO TID PRN for DIARRHEA, #15 Prescribed by: NIKKIE ROSAS D.O. on 04/03/19 001 Ondansetron (Ondansetron Odt) 4 Mg Tab.rapdis, 1 TAB PO PRN Q6-8HRS PRN for NAUSEA, #15 Prescribed by: NIKKIE ROSAS D.O. on 04/03/19 001 Tramadol Hcl (Tramadol Hcl) 50 Mg Tablet, 50 MG PO Q6HRS PRN for PAIN, #20 Prescribed by: FARA MEYERS D.O. on 08/21/20 1218 Justicifation of Admission Dx: Justifications for Admission: Justification of Admission Dx: Yes MARQUISE TOUSSAINT MD Dec 08, 2020 18:01
[2020-12-08] MEDS ORDERED: SENNOSIDES/DOCUSATE 8.6/50MG TABLET. PO SCH (21:00)
--- NOTE | 2020-12-08 21:32 | CARD ---
MR#: [id number] Date of Study: 12/08/2020 Ordering Physician: AARON ARREDONDO, Referring Physician: AARON ARREDONDO, Tech: Juanita Barrientos, [facility] APPROVED REPORT EXAM: Two-dimensional and M-mode echocardiogram with Doppler and color Doppler. Other Information Quality : AverageHR: 68bpm INDICATION Chest Pain RISK FACTORS Hypertension Hyperlipidemia 2D DIMENSIONS Left Atrium(2D)3.8 (1.6-4.0cm)IVSd1.1 (0.7-1.1cm) Aortic Root(2D)2.7 (2.0-3.7cm)LVDd4.6 (3.9-5.9cm) LVOT Diameter2.0 (1.8-2.4cm)PWd1.0 (0.7-1.1cm) LVDs2.4 (2.5-4.0cm)FS (%) 47.1 % SV75.5 mlLVEF(%)78.6 (>50%) Aortic Valve AoV Peak Luis.138.5cm/sAoV VTI29.4cm AO Peak GR.7.7mmHgLVOT VTI 18.37cm AO Mean GR.4mmHg Mitral Valve MV E Uxoksykv91.6cm/sMV DECEL [id number] MV A Ezwtkqjg58.3cm/sE/A Ratio1.4 TDI Lateral E' P. V7.02cm/sMedial E' P. V9.07cm/s E/Lateral E'11.6E/Medial E'9.0 Tricuspid Valve TR P. [id number]/sRAP [id number] TR Peak Gr.[id number] LEFT VENTRICLE The left ventricle is normal size. There is normal left ventricular wall thickness. The left ventricu lar systolic function is normal and the ejection fraction is within normal range. The Ejection Fracti on is 55%. There is normal LV segmental wall motion. Transmitral Doppler flow pattern is Grade II-pse udonormal filling dynamics. RIGHT VENTRICLE The right ventricle is mildly dilated. There is normal right ventricular wall thickness. The right ve ntricular systolic function is normal. ATRIA The left atrium is borderline dilated. The right atrium is borderline dilated. The interatrial septum is intact with no evidence for an atrial septal defect or patent foramen ovale as noted on 2-D or Do ppler imaging. AORTIC VALVE The aortic valve is mildly thickened. Doppler and Color Flow revealed no significant aortic regurgita tion. There is no significant aortic valvular stenosis. Calculated aortic valve area is 1.99 cm2 with maximum pressure gradient of 8 mmHg and mean pressure gradient of 4 mmHg. MITRAL VALVE The mitral valve is normal in structure and function. There is no evidence of mitral valve prolapse. There is no mitral valve stenosis. Doppler and Color-flow revealed trace mitral regurgitation. TRICUSPID VALVE The tricuspid valve is normal in structure and function. Doppler and Color Flow revealed trace tricus pid regurgitation with an estimated PAP of 41 mmHg. There is no tricuspid valve stenosis. PULMONIC VALVE The pulmonic valve is not well visualized. Doppler and Color Flow revealed no pulmonic valvular regur gitation. There is no pulmonic valvular stenosis. GREAT VESSELS The aortic root is normal in size. The IVC is normal in size and collapses >50% with inspiration. PERICARDIAL EFFUSION There is no evidence of significant pericardial effusion. Critical Notification Critical Value: No <Conclusion> The left ventricular systolic function is normal and the ejection fraction is within normal range. Th e Ejection Fraction is 55%. There is normal LV segmental wall motion. Doppler and Color Flow revealed trace tricuspid regurgitation with an estimated PAP of 41 mmHg. Signed by : Santiago Hampton, Electronically Approved : 12/08/2020 21:31:50
== END 2020-12-08 20:00 | disposition home or self-care (01) ==
LOC: ER 03:55 → ED HOLD 05:44
PROVIDERS: ADMIT Student in an Organized Health Care Education/Training Program; ATTEND Student in an Organized Health Care Education/Training Program
DX: R07.89 Other chest pain (principal); Z20.822 Contact with and (suspected) exposure to COVID-19; I10 Essential (primary) hypertension; E78.5 Hyperlipidemia, unspecified; E11.9 Type 2 diabetes mellitus without complications; R11.2 Nausea with vomiting, unspecified; M19.90 Unspecified osteoarthritis, unspecified site; E78.00 Pure hypercholesterolemia, unspecified; Z82.49 Family history of ischemic heart disease and other diseases of the circulatory system
CPT/HCPCS: 36415; 71045; 80053; 80061; 81001; 84484; 85025; 85730; 93005; 93306; 96374; 99285; G0378; J2405; U0003; U0005; G0379